=== PATIENT | male | born 1990 | race Hispanic/Latino ===

== ENCOUNTER 2024-01-15 20:50 | Emergency (ER) | payer SELFPAY ==
[2024-01-15] MEDS ORDERED: HYDROCODONE/APAP 7.5/325 MG TAB ONE (22:06)
[2024-01-15] MEDS ORDERED: TDAP (DIPHTH,PERTUSS(ACELL),TET VAC) 0.5 ML VIAL IMVAC ONE (22:07)
[2024-01-15] MEDS ORDERED: LIDOCAINE 2% W/EPI 1:200,000 MPF 20 ML VIAL IM ONE (23:42)
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
[2024-01-16 02:21] VITALS: BP 148/87; TEMP 97.7; O2SAT 97
--- NOTE | 2024-01-17 16:57 | RAD REPORT ---
EXAM DESCRIPTION: Knee Left 3 View CLINICAL HISTORY: Laceration;Pain. COMPARISON: None. TECHNIQUE: Three views of the left knee: AP, oblique, and lateral radiographs. FINDINGS: Acute comminuted displaced fracture of the patella. Suprapatellar joint effusion, along wi th gas in the joint space. No additional acute osseous abnormality is identified. No radiopaque forei gn object. IMPRESSION: 1. Acute comminuted displaced patellar fracture. 2. Suprapatellar joint effusion, with gas in the joint space. 3. Correlate for open fracture. Electronically signed by: Kalina Whitaker MD 01/15/2024 10:55 PM CDT RP Due to temporary technical issues with the PACS/Fluency reporting system, reports are being signed by the in house radiologists without review as a courtesy to insure prompt reporting. The interpreting radiologist is fully responsible for the content of the report.
== END 2024-01-16 02:02 | disposition left against medical advice (07) ==
LOC: ER 20:50
PROC: 0HQLXZZ Repair Left Lower Leg Skin, External Approach (ICD-10-PCS; principal; 2024-01-16)
DX: S82.042B Displaced comminuted fracture of left patella, initial encounter for open fracture type I or II (principal)
CPT/HCPCS: 96372; 99284